=== PATIENT | female | born 1980 | race African-American/Black ===

== ENCOUNTER 2023-07-31 10:24 | Emergency (ER) | payer MEDICAID ==
[~2023-07-31] VITALS: Ht 160 cm; Wt 100.2 kg
[2023-07-31 10:41] VITALS: BP 185/97; RESP 16; TEMP 98.2; O2SAT 99
[2023-07-31 10:44] VITALS: PULSE 120
[2023-07-31 11:46] LABS: CLARITY URINE TURBID (CLEAR); COLOR URINE RED (YELLOW); GLUCOSE URINE NEGATIVE (NEGATIVE); KETONES URINE NEGATIVE (NEGATIVE); LEUKOCYTE ESTERASE URINE 2+ (NEGATIVE); NITRITE URINE POSITIVE (NEGATIVE); OCCULT BLOOD URINE 2+ (NEGATIVE); PH URINE 7.5 (4.5-8.0); PROTEIN URINE 2+ (NEGATIVE); SPECIFIC GRAVITY URINE 1.021 (1.005-1.030); UROBILINOGEN URINE 0.2 E.U./dL (0.2-1.0)
[2023-07-31 12:17] LABS: RBC URINE TNTC /hpf (0-2)
[2023-07-31 12:18] LABS: BACTERIA URINE 4+; SQUAMOUS EPITHELIAL CELL URINE FEW /lpf (RARE/1+); YEAST URINE NONE SEEN
[2023-07-31 12:27] LABS: ALANINE AMINOTRANSFERASE 21 IU/L (10-49); ALBUMIN 4.6 g/dL (3.2-4.8); ASPARTATE AMINOTRANSFERASE 17 IU/L (<34); BILIRUBIN TOTAL 0.4 mg/dL (0.1-1.0); CALCIUM 9.5 mg/dL (8.7-10.4); CARBON DIOXIDE 19 mEq/L (21-32); CHLORIDE 109 mEq/L (98-107); CREATININE 0.7 mg/dL (0.6-1.0); GLUCOSE 88 mg/dL (70-105); POTASSIUM 4.3 mEq/L (3.5-5.1); PROTEIN TOTAL 8.1 g/dL (6.0-8.3); SODIUM 137 mEq/L (136-145); UREA NITROGEN BLOOD 9 mg/dL (9-23)
[2023-07-31 12:29] LABS: BASOPHILS % 0.4 % (0.0-2.0); EOSINOPHILS % 0.7 % (0.0-5.0); HEMATOCRIT. 31.7 % (36.0-48.0); HEMOGLOBIN. 10.2 g/dL (12.0-16.0); LYMPHOCYTES % 24.9 % (20.0-50.0); MEAN CORPUSCULAR HEMOGLOBIN 26.4 pg (28.0-32.0); MEAN CORPUSCULAR HGB CONC 32.3 g/dL (31.0-37.0); MEAN CORPUSCULAR VOLUME 81.7 fL (81.0-99.0); MEAN PLATELET VOLUME 7.3 fl (7.4-10.4); MONOCYTES % 6.5 % (2.0-8.0); NEUTROPHILS % 67.5 % (40.0-76.0); PLATELET 359 x1000/uL (130-400); RED BLOOD CELL COUNT 3.88 mill/uL (4.2-5.4); RED CELL DISTRIBUTION WIDTH 17.4 % (11.6-14.6); WHITE BLOOD COUNT 9.5 x1000/uL (4.5-11.0)
[2023-07-31 12:52] LABS: HCG SCREEN NEGATIVE
[2023-07-31] MEDS ORDERED: CEPH500C2 MT (13:24)
== END 2023-07-31 13:53 | disposition home or self-care (01) ==
LOC: ER 10:24
DX: N93.9 Abnormal uterine and vaginal bleeding, unspecified (principal); J45.909 Unspecified asthma, uncomplicated; Z98.51 Tubal ligation status
CPT/HCPCS: 36415; 76830; 76856; 80053; 81003; 81025; 84703; 85025; 99284

== ENCOUNTER 2024-03-03 13:42 | Emergency (ER) | payer MEDICAID, OTHER ==
[~2024-03-03] VITALS: Ht 160 cm; Wt 99.8 kg
[~2024-03-03 13:42] MED LIST: CEPH500C2 MT
[2024-03-03 14:13] VITALS: BP 189/125; PULSE 100; RESP 16; TEMP 98.6; O2SAT 100
[2024-03-03] MEDS ORDERED: IBUP-2029 MT (16:25)
[2024-03-03] MEDS ORDERED: METH-653 MT (16:25)
== END 2024-03-03 17:33 | disposition home or self-care (01) ==
LOC: ER 13:42
DX: S13.4XXA Sprain of ligaments of cervical spine, initial encounter (principal); S33.5XXA Sprain of ligaments of lumbar spine, initial encounter; J45.909 Unspecified asthma, uncomplicated; Z98.51 Tubal ligation status; V98.8XXA Other specified transport accidents, initial encounter; Y93.89 Activity, other specified; Y92.89 Other specified places as the place of occurrence of the external cause; Y99.8 Other external cause status
CPT/HCPCS: 71046; 93005; 99283